=== PATIENT | male | born 1990 | race Caucasian/White ===

== ENCOUNTER 2016-10-04 12:43 | Emergency (ER) | payer OTHER ==
[~2016-10-04] VITALS: Ht 177.8 cm; Wt 80.7 kg
[2016-10-04 12:43] VITALS: BP 114/75
[~2016-10-04 12:43] MED LIST: ACET-704 PO; CIPR500T94 PO; HYDR-2666 PO; ONDA4TAB12 PO; TAMS0.4C97 PO
--- NOTE | 2016-10-04 13:38 | PHYS DOC ---
General Chief Complaint: ANKLE PROBLEM Stated Complaint: RT FOOT PAIN Time Seen by MD: 12:52 Source: patient Exam Limitations: no limitations Problems: History of Present Illness Initial Comments Pt is 26/M to ED c/o R ankle pain. 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 Today mild swelling at ankle with painful walking mild swelling, no numbness/ tingling/weakness/radiating sx. No prearrival tx sx described as moderate worse with movement relieved with rest. Onset: yesterday Severity: moderate Pain/Injury Location: right ankle Method of Injury: other Modifying Factors: worse with jarring, worse with movement, improves with rest Allergies: Coded Allergies: No Known Drug Allergies (Unverified , 03/15/15) Past Medical History Medical History: other (kidney stones) Surgical History: noncontributory Social History Smoker: non-smoker Alcohol: none Drugs: none Review of Systems Constitutional: denies chills, denies fever, denies malaise Respiratory: denies cough, denies shortness of breath Cardiovascular: denies chest pain, denies palpitations Gastrointestinal: denies nausea, denies vomiting Genitourinary: denies frequency, denies hematuria Musculoskeletal: see HPI Psychiatric/Neurological: see HPI Physical Exam General Appearance: no apparent distress HEENT: normal ENT inspection Neck: non-tender, supple Cardiovascular/Respiratory: normal peripheral pulses, no respiratory distress Back: no CVA tenderness, no vertebral tenderness Knees: right knee non-tender, right knee normal inspection, right knee normal range of motion, right knee no evidence of injury Ankles: right ankle other (slight effusion, diffuse TTP no palpable deformity, neg drawer, ligs/tendons intact RLE is NV intact) Feet: right foot non-tender, right foot normal inspection, right foot normal range of motion, right foot no evidence of injury Neurologic/Tendon: normal sensation, normal motor functions, normal tendon functions, responds to pain, no evidence tendon injury Psychiatric: alert, oriented x 3 Skin: normal color, warm/dry Orders, Labs, Meds R Foot/R Ankle: no acute osseous abnormality. Departure Time of Disposition: 13:36 Disposition: 01 HOME, SELF-CARE Diagnosis: Right Ankle Sprain Condition: GOOD Patient Instructions: Ankle Sprain, Acute, with Phase I Rehab-SportsMed, RICE - Routine Care for Injuries, [id number] Additional Instructions: Off work thru 10/06 Work Restriction: No prolonged standing/walking until cleared by your doctor. RICE, see handout. OTC tylenol/ibuprofen as needed. Follow up with your doctor in 10-14 days if no improvement. Return to ED with new or changing symptoms. FARHANA SYED DO Oct 04, 2016 13:38
--- NOTE | 2016-10-04 13:40 | RAD ---
Indication: Right ankle pain, fall. Technique: 3 views of the right ankle are submitted for review. No comparison is available. Findings: There is no fracture or dislocation. A few small bone islands are noted in the distal tibia. There is no soft tissue swelling. Impression: Negative for fracture.
--- NOTE | 2016-10-04 13:43 | RAD ---
Indication: Right foot pain, fall. Technique: 3 views of the right foot are submitted for review. No comparison is available. Findings: There is no fracture or dislocation. There is a fragmented sesamoid bone. There is no soft tissue swelling. Impression: Negative for fracture.
== END 2016-10-04 13:45 | disposition home or self-care (01) ==
LOC: ER 12:43
DX: S93.401A Sprain of unspecified ligament of right ankle, initial encounter (principal); X58.XXXA Exposure to other specified factors, initial encounter; Y93.44 Activity, trampolining; Y99.8 Other external cause status; Y92.830 Public park as the place of occurrence of the external cause
CPT/HCPCS: 73610; 73630; 99284-25

== ENCOUNTER 2019-09-30 13:50 | Emergency (ER) | payer BC ==
[~2019-09-30] VITALS: Ht 177.8 cm; Wt 76.2 kg
[~2019-09-30 13:50] MED LIST changes: +HYDR-2155 PO; -HYDR-2666 PO
[2019-09-30 14:55] LABS: INFLUENZA A PATIENT NEGATIVE (NEGATIVE); INFLUENZA B PATIENT NEGATIVE (NEGATIVE)
--- NOTE | 2019-09-30 15:07 | RAD ---
Chest PA and lateral 09/30/2019 Reason for exam: Cough. No infiltrate or effusion is seen. Heart size and pulmonary vascularity appear normal. IMPRESSION: No acute disease. Electronically signed by: Guy Cartagena Jr., MD (09/30/2019 3:04 PM) [id number]
[2019-09-30] MEDS ORDERED: BENZ100C PO (15:24)
[2019-09-30] MEDS ORDERED: AZIT250T PO (15:24)
[2019-09-30] MEDS ORDERED: ONDA4TAB7 PO (15:24)
[2019-09-30] MEDS ORDERED: ALBU2.5V8 IH (15:24)
--- NOTE | 2019-09-30 15:24 | PHYS DOC ---
Past History Past Medical History: Kidney Stones Past Surgical History: No Surgical History Alcohol Use: Rarely Drug Use: None Adult General Chief Complaint Chief Complaint: SORE THROAT HPI HPI Patient is a 29 year old male with history of kidney stone who presents with complaint of cough and sore throat. Patient complaining of nonproductive cough for the last 3 days that became up at night with shortness of breath and nausea and posttussive vomiting. Patient complaining of nasal congestion and sore throat without fever and chills, abdominal pain, sick contact, myalgia, headache and neck pain. Review of Systems Review of Systems Constitutional: Denies fever or chills [] Eyes: Denies change in visual acuity, redness, or eye pain [] HENT: Reports nasal congestion and sore throat Respiratory: Reports cough and shortness of breath Cardiovascular: No additional information not addressed in HPI [] GI: Denies abdominal pain, bloody stools or diarrhea [] : Denies dysuria or hematuria [] Musculoskeletal: Denies back pain or joint pain [] Integument: Denies rash or skin lesions [] Neurologic: Denies headache, focal weakness or sensory changes [] Endocrine: Denies polyuria or polydipsia [] All other systems were reviewed and found to be within normal limits, except as documented in this note. Allergies Allergies Allergies Coded Allergies Type Severity Reaction Last Updated Verified No Known Drug Allergies 03/15/15 No Physical Exam Physical Exam Constitutional: Well developed, well nourished, mild distress, non-toxic appearance. [] HENT: Normocephalic, atraumatic, bilateral external ears normal, oropharynx moist, no oral exudates, nose normal. [] Eyes: PERRLA, EOMI, conjunctiva normal, no discharge. [] Neck: Normal range of motion, no tenderness, supple, no stridor. [] Cardiovascular:Heart rate regular rhythm, no murmur [] Lungs & Thorax: Bilateral breath sounds clear to auscultation [] Abdomen: Bowel sounds normal, soft, no tenderness, no masses, no pulsatile mass es. [] Skin: Warm, dry, no erythema, no rash. [] Back: No tenderness, no CVA tenderness. [] Extremities: No tenderness, no cyanosis, no clubbing, ROM intact, no edema. [] Neurologic: Alert and oriented X 3, normal motor function, normal sensory function, no focal deficits noted. [] Psychologic: Affect normal, judgement normal, mood normal. [] Current Patient Data Vital Signs Vital Signs Date Time Temp Pulse Resp B/P (MAP) Pulse Ox O2 Delivery O2 Flow Rate FiO2 09/30/19 14:05 98.6 91 20 133/97 (109) 96 Room Air Lab Results Laboratory Tests Test 09/30/19 14:25 Influenza Type A (Rapid) Negative (NEGATIVE) Influenza Type B (Rapid) Negative (NEGATIVE) EKG EKG [] Radiology/Procedures Radiology/Procedures [address] [address] IMAGING REPORT Signed PATIENT: ISMA OVERTON ACCOUNT: [id number] : 1990 LOCATION: ER AGE: 29 SEX: M EXAM STATUS: PRE ER ORD. PHYSICIAN: CHETNA RAMOS MD REASON: cough PROCEDURE: CHEST PA & LATERAL Chest PA and lateral 09/30/2019 Reason for exam: Cough. No infiltrate or effusion is seen. Heart size and pulmonary vascularity appear normal. IMPRESSION: No acute disease. Electronically signed by: Candace Alfonso Jr., MD (09/30/2019 3:04 PM) [id number] DICTATED AND SIGNED BY: CANDACE ALFONSO Jr, MD DATE: 09/30/19 1504 CC: CHETNA RAMOS MD; PCP,NO ~ Course & Med Decision Making Course & Med Decision Making Pertinent Labs and Imaging studies reviewed. (See chart for details) I've spoken with the patient and/or caregivers. I've explained the patient's condition, diagnosis and treatment plan based on information available to me at this time. I've answered the patient's and/or caregivers questions and addressed any concerns. The patient and/or caregivers have a good understanding the patient's diagnosis, condition and treatment plan as can be expected at this point. Vital signs have been stabilized. The patient's condition is stable for discharge from the emergency department. The patient will pursue further outpatient evaluation with her primary care provider or other designated consulting physician as outlined in the discharge instructions. Patient and/or caregivers are agreeable to this plan of care and follow-up instructions have been explained in detail. The patient and/or caregivers have received these instructions in written format and expressed understanding of these discharge instructions. The patient and her caregivers are aware that if any significant change in condition or worsening of symptoms should prompt him to immediately return to this of the closest emergency department. If an emergent department is not readily available I would encourage him to call 911. Brandi Disclaimer Dragon Disclaimer This electronic medical record was generated, in whole or in part, using a voice recognition dictation system. Departure Departure: Impression: Primary Impression: Upper respiratory infection Disposition: HOME, SELF-CARE (at 1522) Condition: STABLE Referrals: PCP,NO (PCP) Patient Instructions: Upper Respiratory Infection, Adult Additional Instructions: Drink plenty of liquids Follow-up with your primary care physician in 3-5 days Return to ER if not getting better Scripts Ondansetron Hcl (ZOFRAN) 4 Mg Tablet 1 TAB PO Q6HRS for nausea and vomiting, #12 TAB Prov: CHETNA RAMOS MD 09/30/19 Benzonatate (TESSALON PERLE) 100 Mg Capsule 1 CAP PO TID for cough, #21 CAP Prov: CHETNA RAMOS MD 09/30/19 Albuterol Sulfate (PROAIR HFA INHALER) 8.5 Gm Hfa.aer.ad 2 PUFF IH PRN Q4-6HRS PRN for wheezing for 21 Days, #1 INHALER 0 Refills Prov: CHETNA RAMOS MD 09/30/19 Azithromycin (ZITHROMAX) 250 Mg Tablet 1 PKG PO UD for infection, #1 PKG Prov: CHETNA RAMOS MD 09/30/19 Problem Qualifiers Primary Impression: Upper respiratory infection URI type: unspecified URI Qualified Codes: J06.9 - Acute upper respiratory infection, unspecified CHETNA RAMOS MD Sep 30, 2019 15:24
[2019-09-30 15:32] VITALS: BP 124/62
== END 2019-09-30 15:32 | disposition home or self-care (01) ==
LOC: ER 13:50
DX: J06.9 Acute upper respiratory infection, unspecified (principal); Z87.442 Personal history of urinary calculi
CPT/HCPCS: 71046; 87804; 99284